=== PATIENT | female | born 1960 | race Caucasian/White ===

== ENCOUNTER → 2021-06-14 | Outpatient (CLI) | payer BC ==
[~2021-06-14] MED LIST: LEVOTHYROXINE75 MCG PO; VITAMIN D21250 MCG PO
[2021-06-14 13:31] LABS: HEMOGLOBIN 13.9 gm/dl (12.3-15.3); RED BLOOD COUNT 4.4 M/UL (4.00-5.10); WHITE BLOOD COUNT 7.2 K/UL (4.5-11.0)
== END ==
LOC: OPSV2 12:08
PROVIDERS: Obstetrics & Gynecology
DX: Z01.818 Encounter for other preprocedural examination (principal); N81.9 Female genital prolapse, unspecified
CPT/HCPCS: 36415; 81001; 85025; 93005

== ENCOUNTER → 2021-08-05 | Outpatient (CLI) | payer BC ==
[~2021-08-05] MED LIST changes: +DOCUSATE SODIU250 MG PO; +HYDROCODONE-AC1 EACH PO; +IBUPROFEN600 MG PO
[2021-08-05 13:16] LABS: HEMOGLOBIN 13.9 gm/dl (12.3-15.3); RED BLOOD COUNT 4.45 M/UL (4.00-5.10); WHITE BLOOD COUNT 7.9 K/UL (4.5-11.0)
== END ==
LOC: OPSV2 12:10
PROVIDERS: Obstetrics & Gynecology
DX: Z01.818 Encounter for other preprocedural examination (principal); N81.9 Female genital prolapse, unspecified
CPT/HCPCS: 71046; 81001; 85025

== ENCOUNTER 2021-08-07 08:42 | Day surgery (SDC) | payer BC ==
[~2021-08-07] VITALS: Ht 172.7 cm; Wt 68.0 kg
[~2021-08-07 08:42] MED LIST changes: -DOCUSATE SODIU250 MG PO; -HYDROCODONE-AC1 EACH PO; -IBUPROFEN600 MG PO
[2021-08-07] MEDS ORDERED: DOCUSATE SODIU250 MG PO (15:26)
[2021-08-07] MEDS ORDERED: HYDROCODONE-AC1 EACH PO (15:26)
[2021-08-07] MEDS ORDERED: IBUPROFEN600 MG PO (15:26)
== END 2021-08-08 14:54 | disposition home or self-care (01) ==
LOC: M/S 08:42 → OR 08:42 → M/S 20:59 → OR 08-08 14:54
DX: N81.10 Cystocele, unspecified (principal); N81.6 Rectocele; N39.46 Mixed incontinence; I10 Essential (primary) hypertension; E05.90 Thyrotoxicosis, unspecified without thyrotoxic crisis or storm; K21.9 Gastro-esophageal reflux disease without esophagitis; E78.5 Hyperlipidemia, unspecified; E03.9 Hypothyroidism, unspecified; Z23 Encounter for immunization; Z88.5 Allergy status to narcotic agent; Z20.822 Contact with and (suspected) exposure to COVID-19
CPT/HCPCS: C1769; J0690; J1100; J1170; J1885; J2250; J2405; J2704; J2710; J3010; J7050; J7120